=== PATIENT | male | born 1985 | race African-American/Black ===

== ENCOUNTER 2016-10-17 23:25 | Emergency (ER) | payer SELFPAY ==
[~2016-10-17 23:25] MED LIST: VICODIN 5/1 TAB 5/50 PO
== END 2016-10-18 01:09 | disposition home or self-care (01) ==
LOC: SED 23:25
DX: J06.9 Acute upper respiratory infection, unspecified (principal); J45.909 Unspecified asthma, uncomplicated; F17.200 Nicotine dependence, unspecified, uncomplicated; Z88.0 Allergy status to penicillin
CPT/HCPCS: 99282